=== PATIENT | female | born 1950 | race Two or more races ===

== ENCOUNTER 2020-02-02 06:22 | Observation (INO) | payer MEDICARE, SELFPAY ==
[2020-02-02] VITALS (10 sets, daily range): BP systolic 128–168; BP diastolic 56–77; PULSE 70–92; RESP 14–20; TEMP 36.2–37.7; O2SAT 98–100; BMI 27.3
--- NOTE | ~2020-02-02 | US_ITS ---
EXAMINATION: US carotid duplex BI DATE: 02/02/2020 14:17 INDICATION: Stroke with subjective visual disturbance. TECHNIQUE: Grayscale, color Doppler, and pulsed Doppler images of the cervical carotid arteries were obtained. The degree of vessel stenosis is placed in one of the following categories: normal, <50%, 5 0-69%, >=70% but less than near-occlusion, near-occlusion, or total occlusion. Note that percent sten osis relative to normal distal artery lumen diameter is indirectly measured from velocity measurement s as described by Christofer, et al. Radiology 2003; [id number]. COMPARISON: None. FINDINGS: RIGHT: The right common carotid artery (CCA) peak systolic velocity (PSV) is 94 cm/s. The right internal car otid artery (ICA) PSV is 100 cm/s. The right ICA end-diastolic velocity (EDV) is 27 cm/s. The right I CA/CCA PSV ratio is 1.1. Grayscale and color Doppler images yield an estimate of <50% diameter reduct ion from plaque in the ICA. The external carotid artery (ECA) PSV is 152 cm/s. There is antegrade benji w in the right vertebral artery. LEFT: The left CCA PSV is 118 cm/s. The left ICA PSV is 126 cm/s. The left ICA EDV is 27 cm/s. The left ICA /CCA PSV ratio is 1.1. Grayscale and color Doppler images using secondary Doppler criteria yield an e stimate of <50% diameter reduction from plaque in the ICA. The ECA PSV is 98 cm/s. There is antegrade flow in the left vertebral artery. IMPRESSION: 1. <50% stenosis in the right internal carotid artery. 2. <50% stenosis in the left internal carotid artery. Reviewed, dictated and finalized at location A.
--- NOTE | ~2020-02-02 | CT_ITS ---
EXAMINATION: CT brain wo con INDICATION: Right vision difficulty COMPARISON: None TECHNIQUE: Standard unenhanced head CT. The dose-length product (DLP) was 529.67 mGy-cm. The mA was a djusted according to patient size. Iterative reconstruction technique was employed. FINDINGS: There is hypoattenuation in the left frontoparietal region with loss of butts-white differen tiation. A smaller area of low attenuation is seen in the right frontoparietal region which also demo nstrates loss of butts-white differentiation. There is no acute intraparenchymal hemorrhage. No defini te evidence of mass lesion. There is mild periventricular and subcortical hypodensity probably relate d to small vessel ischemic disease. There is mild prominence of the sulci and ventricles related to c erebral atrophy. Intracranial calcified cerebral atherosclerosis is noted. There are no extra-axial c ollections. There is no mass effect or midline shift. Changes in the globes are likely from ocular le ns surgery. There is mild mucosal thickening of the paranasal sinuses. IMPRESSION: 1. Hypoattenuation in the bilateral frontoparietal regions which has the appearance of subacute to ea rly chronic infarct. 2. Age related findings. Reviewed, dictated and finalized at location A. IMPRESSION: 1. Hypoattenuation in the bilateral frontoparietal regions which has the appear ance of subacute to early chronic infarct. 2. Age related findings.
--- NOTE | ~2020-02-02 | XR_ITS ---
EXAMINATION: XR chest 1V INDICATION: Headache, CVA TECHNIQUE: AP view of the chest is obtained. COMPARISON: 07/05/2015 FINDINGS: The lungs are free of acute opacities. There is no pleural effusion or pneumothorax. The ca rdiomediastinal silhouette is normal. IMPRESSION: 1. No acute cardiopulmonary abnormality. Reviewed, dictated and finalized at location A.
--- NOTE | ~2020-02-02 | MR_ITS ---
EXAMINATION: MR brain/brain stem wo/w con DATE: 02/02/2020 13:24 INDICATION: Left-sided headache. Blurred vision. TECHNIQUE: Magnetic resonance imaging (MRI) of the brain and brainstem was performed without and with 14 mL Multihance intravenous contrast. Sequences included sagittal and axial T1-weighted SE, axial d iffusion-weighted FS SE, axial T2*-weighted GRE, axial T2-weighted FLAIR, and axial T2-weighted FSE. Postcontrast axial, sagittal and coronal T1-weighted SE was obtained. Apparent diffusion coefficient (ADC) maps were created. COMPARISON: CT dated 02/02/2020 FINDINGS: There is increased T2 signal at the margins of 2 regions of infarct with linear T1 hyperintense nile ar necrosis centered at the left parieto-occipital and right frontal parietal regions. There appears to be some encephalomalacia with cortical thinning at the right-sided infarcts suggesting this is chr onic. This is not seen at the left-sided infarct suggesting a more recent subacute to early chronic i nfarct. There are a few small old lacunar infarcts in the bilateral cerebellar hemispheres. There are no areas of restricted diffusion to suggest acute infarction. No intracranial hemorrhage or abnormal intracranial mass lesion. There are scattered areas of nonspecific increased T2-weighted signal inte nsity in the cerebral white matter, predominantly involving the deep and periventricular white matter . The ventricles are symmetric and normal in size. There are no abnormal extra-axial fluid collection s. Flow voids are seen in the cerebral arteries on the T2-weighted sequences consistent with their ex pected patency. Small right and trace left mastoid effusions. Mild mucosal thickening in the bilatera l maxillary sinuses. Changes of bilateral intraocular lens replacement. Visualized orbits and soft t issues are otherwise unremarkable. There are no areas of abnormal enhancement on the post contrast im ages. IMPRESSION: 1. No acute intracranial process. 2. Chronic infarct in the left parieto-occipital region and subacute to chronic infarct in the right frontal parietal [place]. 3. Several small old lacunar infarcts in the bilateral cerebellar hemispheres. Reviewed, dictated and finalized at location A.
--- NOTE | 2020-02-02 07:10 | PC.NURSE ---
pt states that headache and vision issue on left side NOT right
--- NOTE | 2020-02-02 07:24 | ECG_ITS ---
Measurements Intervals [place] Rate: 76 P: 42 OK: 155 QRS: 31 QRSD: 70 T: 35 QT: 360 QTc: 405 Interpretive Statements SINUS RHYTHM LOW QRS VOLTAGE IN PRECORDIAL LEADS BASELINE ARTIFACT- I, II, III, AVR, AVL BORDERLINE ECG Electronically Signed On 02-02-2020 8:06:17 CDT by Rigoberto Vera D.O.
--- NOTE | 2020-02-02 07:42 | ED.HA ---
HPI - Headache General Chief Complaint: Headache Stated Complaint: Headache Time Seen by Provider: 02/02/20 07:03 Source: patient and family Mode of arrival: ambulatory Limitations: no limitations History of Present Illness HPI Narrative: This patient is a 69 year old female with history of CVA, PA who presents for evaluation of left side headache. Patient reports intermittent left side headache for 2 days. Her pain resolves for a few hours after taking aspirin. She states 4 years ago she had the same headache and she was diagnosed with a stroke and a heart attack. At that time, she reported left side weakness, and she states she still has some residual weakness. Today she denies worsening weakness, numbness, or tingling. She also reports see spots in vision in both eyes for 2 days. She denies nausea, vomiting, URI symptoms, neck pain or fever. MD elicited complaint: headache Onset (ago): day(s) (2) Related Data Home Medications Medication Instructions Recorded Confirmed albuterol sulfate [ProAir HFA] 2 puff INHALATION QID PRN 02/02/20 02/02/20 aspirin [Aspirin Low Dose] 81 mg DAILY 02/02/20 02/02/20 clopidogrel 75 mg DAILY 02/02/20 02/02/20 ergocalciferol (vitamin D2) 50,000 unit WEEKLY 02/02/20 02/02/20 gabapentin 800 mg QID 02/02/20 02/02/20 glipizide 2.5 mg PO DAILY 02/02/20 02/02/20 lisinopril 2.5 mg DAILY 02/02/20 02/02/20 Allergies Allergy/AdvReac Type Severity Reaction Status Date / Time Penicillins Allergy Severe Anaphylaxis Verified 02/02/20 07:21 iodine Allergy Rash Verified 02/02/20 07:22 Sulfa (Sulfonamide Allergy Rash Verified 02/02/20 07:21 Antibiotics) Review of Systems Review of Systems: All systems reviewed & are unremarkable except as noted in HPI and below Constitutional: Constitutional: Denies chills and Denies fever(s) Eyes: Eyes: Reports spots in vision ENT: Denies dizziness and Denies nasal congestion Cardiovascular: Cardiovascular: Denies chest pain Respiratory: Respiratory: Denies cough and Denies dyspnea Gastrointestinal: Gastrointestinal: Denies abdominal pain, Denies nausea and Denies vomiting Neurologic: Denies vertigo, Reports headache(s) and Reports weakness PMFSH Past Medical History Medical History (Updated 02/02/20 @ 18:31 by Lizette Garcia MD) CVA (cerebral vascular accident) Diabetes mellitus Headache Hypertension Myocardial infarction Surgical History Surgical History H/O heart artery stent History of hysterectomy Family History Family History (Updated 02/02/20 @ 15:02 by Jessy Stafford, RN) Mother Cerebrovascular accident Father Unknown family medical history Social History Social History Smoking status: Never smoker Alcohol intake: never Substance use type: does not use Spiritual care concerns: No Exam Narrative: Exam Narrative: GENERAL: Well-appearing, well-nourished, and in no acute distress. HEAD: Normocephalic, atraumatic EYES: PERRLA and EOMI, conjunctiva clear without discharge EARS: TM's clear bilaterally without erythema or dullness THROAT:Mucous membranes moist, Oropharynx normal without erythema, exudate, peritonsillar swelling or fluctuance NECK: Supple, without lymphadenopathy or mass RESPIRATORY: No respiratory distress, Airway patent, Respirations non-labored, Clear to auscultation without rales, rhonchi or wheeze HEART: Regular rate and rhythm. No murmur heard. Normal peripheral pulses. ABDOMEN: Soft, nontender, nondistended, normal active bowel sounds. No masses. No rebound or guarding, No organomegaly. EXTREMITIES: No edema, SKIN: Warm, dry, normal color without rash NEURO: Alert and oriented x3. CN 2-12 grossly intact. PSYCH: Normal mood and affect. Course Consultations Consultation #1: I spoke with Dr. Garcia who accepts patient to service with neurology consult, MRI brain and c
[2020-02-02 07:57] LABS: Basophils Absolute Auto 0.1 K/mm3 (0.0-0.1); Basophils Percent Auto 0.9 % (0.2-1.2); Eosinophils Absolute Auto 0.3 K/mm3 (0-0.3); Eosinophils Percent Auto 4.2 % (0-4.4); Hematocrit 35.5 % (37.0-47.0); Hemoglobin 11.4 g/dL (12.0-15.0); Immature Granulocyte Absolute 0.02 K/mm3 (0.00-0.031); Immature Granulocyte Percent A 0.3 % (0-0.5); Lymphocytes Absolute Auto 2.66 K/mm3 (0.9-3.2); Lymphocytes Percent Auto 34.9 % (18.3-44.2); Mean Corpuscular HGB Conc 32.1 g/dl (32-36); Mean Corpuscular Hemoglobin 29.1 pg (26-34); Mean Corpuscular Volume 90.6 fl (80-100); Mean Platelet Volume 12.1 fl (7.4-10.4); Monocytes Absolute Auto 0.5 K/mm3 (0.1-0.6); Monocytes Percent Auto 6.8 % (2.6-8.5); Neutrophils Percent Auto 52.9 % (45.5-73.1); Platelet Count Result 210 k/mm3 (150-375); Red Blood Count 3.92 M/mm3 (4.2-5.4); Red Cell Distribution Width 13.6 % (11.5-14.5); White Blood Count 7.6 K/mm3 (4.5-10.0)
[2020-02-02 07:58] LABS: Glucose Point of Care 89 (65-105)
[2020-02-02 08:07] LABS: INR 0.9; Prothrombin Time 11.6 Seconds (11.1-14.7)
[2020-02-02 08:08] LABS: Anion Gap 14.4 mmol/L (7-16); Blood Urea Nitrogen 18 mg/dL (7-17); Calcium 9.3 mg/dL (8.4-10.2); Carbon Dioxide 25 mmol/L (22-30); Chloride 102 mmol/L (98-107); Estimated CRCL calculation 35 ml/min; Estimated Glomerular Filt Rate 44; Glucose 101 mg/dL (65-105); Partial Thromboplastin Time 37.9 SECONDS (22.3-36.8); Potassium 4.4 mmol/L (3.4-5.0); Sodium 137 mmol/L (137-145)
[2020-02-02 08:20] LABS: Troponin I < 0.012 ng/mL (0.000-0.034)
[2020-02-02] MEDS: CLOPIDOGREL BISULFATE 75 MG TABLET PO (10:15)
[2020-02-02] MEDS: ASPIRIN 81 MG CHEWABLE TABLET 324 MG PO (10:15)
[2020-02-02 10:19] LABS: Add Urine Microscopic? NO; Appearance Urine Clear (Clear); Bilirubin Urine Negative (Negative); Blood Urine Negative (Negative); Color Urine Straw (Yellow); Glucose Urine UA Negative (Negative); Ketones Urine Negative (Negative); Leukocyte Esterase Ur Negative LEU/UL (Negative); Nitrate Urine Negative (Negative); Protein Urine Negative (Negative); Specific Grav Ur 1.011 (1.001-1.035); Urobilinogen Urine Negative mg/dL (<2.0)
--- NOTE | 2020-02-02 10:50 | PC.NURSE ---
This patient, Robi Henriquez, was admitted to Medical Room 342-. Patient/family oriented to hospital policies and general routines including ID bracelet, bed and alarms, visiting hours, pain management, procedures, bathroom and other care routines, personal items, smoking policy, room service/diet, and visiting hours. Valuables list has been completed. Information on how to activate the Rapid Response Team has been discussed. Patient/Family are encouraged to report perceived risks to care and to ask questions if they do not understand what they are told or what they should do.
[2020-02-02 11:52] LABS: Glucose Point of Care 80 (65-105)
--- NOTE | 2020-02-02 14:47 | WPDNEURCNPN ---
Assessment and Plan Assessment and plan (1) Hypertension: Code(s): I10 - Essential (primary) hypertension Status: Acute (2) TIA (transient ischemic attack): Code(s): G45.9 - Transient cerebral ischemic attack, unspecified Status: Acute (3) Headache: Code(s): R51 - Headache Status: Acute Additional Plan she already is on and dual anti-platelet therapy and being in October investigated we will review once the MRIs done and the echo is done and will decide according Consult date: 02/02/20 Time Seen: 14:00 HPI: Robi Henriquez is a 69 year old female who is from a file and was admitted because of the headache and the previous history of having a stroke results of multiple testing including the brain MRI are pending patient at the time of the dictation does not given history of headache and she is feeding herself with her right hand quite nicely and well she denies any fever chills sore throat and does not seem to be any distress Review of Systems Review of Systems: All systems reviewed & are unremarkable except as noted in HPI and below PMFSH Past Medical History Medical History CVA (cerebral vascular accident) Diabetes mellitus Hypertension Myocardial infarction Surgical History Surgical History H/O heart artery stent History of hysterectomy Social History Social History Smoking status: Never smoker Alcohol intake: never Substance use type: does not use Spiritual care concerns: No Meds Home Medications and Allergies Home Medications Medication Instructions Recorded Confirmed Type albuterol sulfate [ProAir HFA] 2 puff INHALATION QID PRN 02/02/20 02/02/20 History aspirin [Aspirin Low Dose] 81 mg DAILY 02/02/20 02/02/20 History clopidogrel 75 mg DAILY 02/02/20 02/02/20 History ergocalciferol (vitamin D2) 50,000 unit WEEKLY 02/02/20 02/02/20 History gabapentin 800 mg QID 02/02/20 02/02/20 History glipizide 2.5 mg PO DAILY 02/02/20 02/02/20 History lisinopril 2.5 mg DAILY 02/02/20 02/02/20 History Allergies Allergy/AdvReac Type Severity Reaction Status Date / Time Penicillins Allergy Severe Anaphylaxis Verified 02/02/20 07:21 iodine Allergy Rash Verified 02/02/20 07:22 Sulfa (Sulfonamide Allergy Rash Verified 02/02/20 07:21 Antibiotics) Vital Signs Vital Signs - 24 hr 02/02/20 06:25 02/02/20 07:18 02/02/20 07:43 Temperature 36.4 C Pulse Rate 85 84 92 Respiratory Rate 16 14 14 Blood Pressure 132/76 168/59 H 166/76 H Pulse Oximetry 100 100 99 02/02/20 09:02 02/02/20 10:35 02/02/20 11:16 Temperature 36.4 C Pulse Rate 70 72 70 Respiratory Rate 16 20 18 Blood Pressure 128/56 L 154/64 H 146/66 H Pulse Oximetry 100 100 100 02/02/20 14:13 Temperature Pulse Rate 70 Respiratory Rate 18 Blood Pressure Pulse Oximetry 100 Exam Const: General: comfortable and no acute distress HENMT: General nose exam: Normal nares present Mouth: Yes moist mucous membranes Eyes: General: appearance normal, both eyes and all related structures Neck: Neck: supple and no JVD Resp: Effort & Inspection: normal respiratory effort Auscultation: clear to auscultation bilaterally Cardio: Rate: regular rate Rhythm: regular rhythm GI: Auscultation: normal bowel sounds Skin: General skin exam: normal color and no rashes or lesions noted Neuro: Other: in spite of some language barrier she being from [facility] she is awake and alert well oriented does not seem to be any distress a subtle left-sided weakness is noted otherwise neurological examination is really decent and unremarkable except the residual weakness she may have had from the previous stroke as she claims Extrem: General: normal to inspection Psych: Mental Status: mental status grossly normal Results Labs CBC & Chem 7: 02/02/20 07:48
--- NOTE | 2020-02-02 15:29 | PM.IMHP ---
H&P: HPI History of Present Illness Date/Time: 02/02/20 15:29 Chief complaint: left headache,cva Narrative: Robi Henriquez is a 69 year old female from [facility] with past medical history of diabetes hypertension coronary artery disease status post CVA 5 years ago with left-sided weakness, patient states about a month now she has left orbital headache radiating to her jaw and occipital area with blurry vision and photophobia, patient did not want to come to the hospital because she was scared but her symptoms were getting worse she presented today to the emergency depart, patient is already on dual anti-platelet therapy with aspirin and Plavix, and had a CT scan of the head in the emergency depart which did not show any acute injury and similarly patient had MRI of the brain did not show any acute injury rather chronic cerebral lesions, to further evaluate patient had a carotid ultrasound which are essentially normal, I suspect patient may have migraine headache with left orbital pain radiating to the back, patient will be seen by neurologist and further recommendation to follow Review of Systems Review of Systems: All systems reviewed & are unremarkable except as noted in HPI and below PMFSH Past Medical History Medical History (Updated 02/02/20 @ 15:49 by Kolby Garcia MD) CVA (cerebral vascular accident) Diabetes mellitus Headache Hypertension Myocardial infarction Surgical History Surgical History H/O heart artery stent History of hysterectomy Family History Family History (Updated 02/02/20 @ 15:02 by Jessy Stafford RN) Mother Cerebrovascular accident Father Unknown family medical history Social History Social History Smoking status: Never smoker Alcohol intake: never Substance use type: does not use Spiritual care concerns: No Meds Home Medications and Allergies Home Medications Medication Instructions Recorded Confirmed Type albuterol sulfate [ProAir HFA] 2 puff INHALATION QID PRN 02/02/20 02/02/20 History aspirin [Aspirin Low Dose] 81 mg DAILY 02/02/20 02/02/20 History clopidogrel 75 mg DAILY 02/02/20 02/02/20 History ergocalciferol (vitamin D2) 50,000 unit WEEKLY 02/02/20 02/02/20 History gabapentin 800 mg QID 02/02/20 02/02/20 History glipizide 2.5 mg PO DAILY 02/02/20 02/02/20 History lisinopril 2.5 mg DAILY 02/02/20 02/02/20 History Allergies Allergy/AdvReac Type Severity Reaction Status Date / Time Penicillins Allergy Severe Anaphylaxis Verified 02/02/20 07:21 iodine Allergy Rash Verified 02/02/20 07:22 Sulfa (Sulfonamide Allergy Rash Verified 02/02/20 07:21 Antibiotics) Vital Signs Vital Signs - 24 hr 02/02/20 06:25 02/02/20 07:18 02/02/20 07:43 Temperature 97.6 F Pulse Rate 85 84 92 Respiratory Rate 16 14 14 Blood Pressure 132/76 168/59 H 166/76 H Pulse Oximetry 100 100 99 02/02/20 09:02 02/02/20 10:35 02/02/20 11:16 Temperature 97.6 F Pulse Rate 70 72 70 Respiratory Rate 16 20 18 Blood Pressure 128/56 L 154/64 H 146/66 H Pulse Oximetry 100 100 100 02/02/20 14:00 02/02/20 14:13 Temperature 97.2 F L Pulse Rate 78 70 Respiratory Rate 16 18 Blood Pressure 146/62 H Pulse Oximetry 100 100 Exam Const: General: no acute distress and uncomfortable HENMT: General nose exam: Normal nares present Mouth: Yes moist mucous membranes Eyes: Sclera: sclerae normal Other: patient is unable to follow eye movement due to pain and photophobia. Neck: Neck: supple Resp: Effort & Inspection: normal respiratory effort Auscultation: clear to auscultation bilaterally Cardio: Rate: regular rate Rhythm: regular rhythm GI: GI Palp: Yes Soft to palpation Auscultation: normal bowel sounds Skin: General skin exam: normal color Neuro: Speech: normal speech Other: left upper and lower extremity weaker than the right Extrem: General:
[2020-02-02 16:39] LABS: Glucose Point of Care 96 (65-105)
[2020-02-02 20:55] LABS: Glucose Point of Care 87 (65-105)
[2020-02-03] VITALS: PULSE 70
[2020-02-03 04:00] VITALS: PULSE 61
[2020-02-03 06:10] VITALS: BP 123/55; PULSE 76; RESP 14; TEMP 36.5; O2SAT 98
[2020-02-03 08:00] VITALS: PULSE 87
[2020-02-03 08:06] LABS: Glucose Point of Care 126 (65-105)
[2020-02-03 11:52] LABS: Glucose Point of Care 104 (65-105)
[2020-02-03 12:00] VITALS: PULSE 88
--- NOTE | 2020-02-03 13:14 | PCOTNOTE ---
Attempted to see patient twice this date. First attempt, patient was eating lunch. Pt stated she was hoping for discharge today. Attempted this pm, however patient stated she wanted to hold off to see if she was discharging. Daughter in law at bedside reported She got the green light from Dr. Garcia, we just have to wait for the neurologist to say she can go.
[2020-02-03 14:00] VITALS: BP 139/63; PULSE 85; RESP 18; TEMP 36.6; O2SAT 100
--- NOTE | 2020-02-03 15:13 | PM.DS ---
DS: Admitting Diagnosis Admitting Diagnosis Admitting Diagnosis: Essential (primary) hypertension DS: Discharge Diagnosis Discharge Diagnosis (1) Headache: Code(s): R51 - Headache Status: Acute Assessment and Plan: Robi Henriquez is a 69 year old female from [facility] with past medical history of diabetes hypertension coronary artery disease status post CVA 5 years ago with left-sided weakness, patient states about a month now she has left orbital headache radiating to her jaw and occipital area with blurry vision and photophobia, patient did not want to come to the hospital because she was scared but her symptoms were getting worse she presented today to the emergency depart, patient is already on dual anti-platelet therapy with aspirin and Plavix, and had a CT scan of the head in the emergency depart which did not show any acute injury and similarly patient had MRI of the brain did not show any acute injury rather chronic cerebral lesions, to further evaluate patient had a carotid ultrasound which are essentially normal, I suspect patient may have migraine headache with left orbital pain radiating to the back, patient will be seen by neurologist and further recommendation to follow (2) TIA (transient ischemic attack): Code(s): G45.9 - Transient cerebral ischemic attack, unspecified Status: Acute Assessment and Plan: patient symptoms have improved CT scan and MRI of the brain sign negative most likely patient has migraine headache (3) Hypertension: Code(s): I10 - Essential (primary) hypertension Status: Acute Assessment and Plan: will continue home regimen and monitor permissively trend her blood pressure (4) Diabetes mellitus: Code(s): E11.9 - Type 2 diabetes mellitus without complications Status: Acute Assessment and Plan: will continue home regimen and monitor DS: Summary Hospital Course Reason for hospitalization: Chief complaint: left headache,cva Narrative: Robi Henriquez is a 69 year old female from [facility] with past medical history of diabetes hypertension coronary artery disease status post CVA 5 years ago with left-sided weakness, patient states about a month now she has left orbital headache radiating to her jaw and occipital area with blurry vision and photophobia, patient did not want to come to the hospital because she was scared but her symptoms were getting worse she presented today to the emergency depart, patient is already on dual anti-platelet therapy with aspirin and Plavix, and had a CT scan of the head in the emergency depart which did not show any acute injury and similarly patient had MRI of the brain did not show any acute injury rather chronic cerebral lesions, to further evaluate patient had a carotid ultrasound which are essentially normal, I suspect patient may have migraine headache with left orbital pain radiating to the back, patient will be seen by neurologist and further recommendation to follow Hospital Course: Robi Henriquez is a 69 year old female from [facility] with past medical history of diabetes hypertension coronary artery disease status post CVA 5 years ago with left-sided weakness, patient states about a month now she has left orbital headache radiating to her jaw and occipital area with blurry vision and photophobia, patient did not want to come to the hospital because she was scared but her symptoms were getting worse she presented today to the emergency depart, patient is already on dual anti-platelet therapy with aspirin and Plavix, and had a CT scan of the head in the emergency depart which did not show any acute injury and similarly patient had MRI of the brain did not show any acute injury rather chronic cerebral lesions, to further evaluate patient had a carotid ultrasound which are essentially normal, I suspect patient may have migraine headache with left orbital pain radiating to the back, patient will be seen by neurol
[2020-02-03] MEDS: ASPIRIN 81 MG CHEWABLE TABLET PO (15:45)
[2020-02-03] MEDS: CLOPIDOGREL BISULFATE 75 MG TABLET PO (15:45)
--- NOTE | 2020-02-03 16:12 | WPDNEUROPN ---
Progress Note: A&P Assessment and Plan (1) CVA (cerebral vascular accident): Code(s): I63.9 - Cerebral infarction, unspecified Status: Acute (2) Diabetes mellitus: Code(s): E11.9 - Type 2 diabetes mellitus without complications Status: Acute (3) Headache: Code(s): R51 - Headache Status: Acute (4) TIA (transient ischemic attack): Code(s): G45.9 - Transient cerebral ischemic attack, unspecified Status: Acute (5) Hypertension: Code(s): I10 - Essential (primary) hypertension Status: Acute Additional Plan discussed with the daughter and the patient she can be safely discharged and continue aspirin and Plavix with all the other medications as she has been receiving Review of Systems Review of Systems: All systems reviewed & are unremarkable except as noted in HPI and below Exam Const: General: comfortable and no acute distress HENMT: General nose exam: Normal nares present Mouth: Yes moist mucous membranes Eyes: General: appearance normal, both eyes and all related structures Neck: Neck: supple and no JVD Resp: Effort & Inspection: normal respiratory effort Auscultation: clear to auscultation bilaterally Cardio: Rate: regular rate Rhythm: regular rhythm GI: Auscultation: normal bowel sounds Skin: General skin exam: normal color and no rashes or lesions noted Neuro: Speech: normal speech Other: back to her baseline Extrem: General: normal to inspection Psych: Mental Status: mental status grossly normal Objective Data Vital Signs Vital Signs: Vital Signs - 24 hr 02/02/20 17:17 02/02/20 20:10 02/03/20 00:00 Temperature 37.7 C H 36.5 C Pulse Rate 89 73 70 Respiratory Rate 20 16 Blood Pressure 150/77 H 148/68 H Pulse Oximetry 98 99 02/03/20 04:00 02/03/20 06:10 02/03/20 08:00 Temperature 36.5 C Pulse Rate 61 76 87 Respiratory Rate 14 Blood Pressure 123/55 L Pulse Oximetry 98 02/03/20 12:00 02/03/20 14:00 Temperature 36.6 C Pulse Rate 88 85 Respiratory Rate 18 Blood Pressure 139/63 Pulse Oximetry 100 Intake/Output Intake/Output: Intake & Output 01/31/20 02/01/20 02/02/20 02/03/20 23:59 23:59 23:59 23:59 Intake Total 580 1570 Output Total 600 Balance 580 970 Meds/Results Radiology Results: ITS Impressions Head CT 02/02/20 08:18 IMPRESSION: 1. Hypoattenuation in the bilateral frontoparietal regions which has the appearance of subacute to early chronic infarct. 2. Age related findings. Chest X-Ray 02/02/20 08:31 IMPRESSION: 1. No acute cardiopulmonary abnormality. Brain MRI 02/02/20 13:29 IMPRESSION: 1. No acute intracranial process. 2. Chronic infarct in the left parieto-occipital region and subacute to chronic infarct in the right frontal parietal [place]. 3. Several small old lacunar infarcts in the bilateral cerebellar hemispheres. Carotid Doppler Study 02/02/20 14:54 IMPRESSION: 1. <50% stenosis in the right internal carotid artery. 2. <50% stenosis in the left internal carotid artery. Labs Labs: Laboratory Results - last 24 hr 02/02/20 02/02/20 02/03/20 16:36 20:49 08:01 POC Capillary Glucose 96 87 126 H 02/03/20 11:33 POC Capillary Glucose 104 Quality VTE Prophylaxis VTE prophylaxis: mechanical ordered
== END 2020-02-03 15:51 | disposition home or self-care (01) ==
LOC: ANHED 09:27 → ANH3MED 09:49
PROVIDERS: Admitting Provider Family Medicine; Emergency Provider General Practice; PCP Family Medicine; Visit Provider Family Medicine
DX: R51 Headache (principal); G45.9 Transient cerebral ischemic attack, unspecified; I10 Essential (primary) hypertension; E11.9 Type 2 diabetes mellitus without complications; I25.10 Atherosclerotic heart disease of native coronary artery without angina pectoris; I25.2 Old myocardial infarction; Z79.82 Long term (current) use of aspirin; Z79.899 Other long term (current) drug therapy; Z86.73 Personal history of transient ischemic attack (TIA), and cerebral infarction without residual deficits
CPT/HCPCS: 36415; 70450; 70553; 71045; 80048; 81003; 82948; 84484; 85025; 85610; 85730; 93005; 93880; 96365; 97161; 97165; 99285; A9270; A9577; G0378; J0131

== ENCOUNTER 2021-01-19 08:20 | Inpatient (IN) | payer MEDICARE, SELFPAY ==
[2021-01-19] VITALS (10 sets, daily range): BP systolic 144–180; BP diastolic 58–69; PULSE 72–99; RESP 12–18; TEMP 36.4; O2SAT 95–100
--- NOTE | ~2021-01-19 | XR_ITS ---
EXAMINATION: XR chest 1V portable DATE: 01/19/2021 09:16 INDICATION: Weakness TECHNIQUE: frontal view of the chest was obtained. COMPARISON: Chest radiograph dated 02/02/2020 FINDINGS: Mild lingular atelectasis along side a small left paracardial fat pad. Calcified nodule at the medial left lung base consistent with old granulomatous disease. Relatively dense reticular pattern at the bilateral lung bases most consistent with aspirated barium. No new airspace opacities, pulmonary zachary a, pleural effusion or pneumothorax. The cardiomediastinal silhouette is normal. Coronary artery sten ting. Mild thoracic dextrocurvature accentuated by some leftward rotation of the patient. IMPRESSION: 1. No acute cardiopulmonary disease. Reviewed, dictated and finalized at location A.
--- NOTE | ~2021-01-19 | MR_ITS ---
EXAMINATION: MRA brain wo con EXAM DATE: 01/20/2021 11:38 INDICATION: Stroke. TECHNIQUE: 3-D [id number] MRA of the intracranial arteries was performed without contrast. Correl ation is made to head CT from 01/19/2021. FINDINGS: Study is limited due to patient motion. There is normal flow related signal seen within the vertebr al, basilar and internal carotid arteries. There is no proximal stenosis. There are no aneurysms id entified. Both A1 and P1 segments are patent. Flow in the cerebral arteries is symmetric. Old front oparietal lobe infarctions. IMPRESSION: Unremarkable cerebral arteries. Reviewed, dictated and finalized at location A.
--- NOTE | ~2021-01-19 | XR_ITS ---
EXAMINATION: XR chest 1V portable INDICATION: Shortness of breath TECHNIQUE: Portable AP chest at 1139 hours COMPARISON: 01/19/2021 FINDINGS: The lungs are free of acute opacities. There is no pleural effusion or pneumothorax. The ca rdiomediastinal silhouette is normal. There is S-shaped curvature of the spine. IMPRESSION: 1. No acute cardiopulmonary abnormality. Reviewed, dictated and finalized at location B.
--- NOTE | ~2021-01-19 | US_ITS ---
EXAMINATION: US carotid duplex BI DATE: 01/19/2021 13:15 INDICATION: Transient ischemic episode with encephalopathy. Cerebral atherosclerosis. TECHNIQUE: Grayscale, color Doppler, and pulsed Doppler images of the cervical carotid arteries were obtained. The degree of vessel stenosis is placed in one of the following categories: normal, <50%, 5 0-69%, >=70% but less than near-occlusion, near-occlusion, or total occlusion. Note that percent sten osis relative to normal distal artery lumen diameter is indirectly measured from velocity measurement s as described by Christofer, et al. Radiology 2003; 229:340-346. COMPARISON: 02/02/2020 FINDINGS: RIGHT: The right common carotid artery (CCA) peak systolic velocity (PSV) is 63 cm/s. The right internal car otid artery (ICA) PSV is 91 cm/s. The right ICA end-diastolic velocity (EDV) is 24 cm/s. The right IC A/CCA PSV ratio is 1.5. Grayscale and color Doppler images yield an estimate of <50% diameter reducti on from plaque in the ICA. The external carotid artery (ECA) PSV is 96 cm/s. The right vertebral cornelius ry is not visualized. LEFT: The left CCA PSV is 82 cm/s. The left ICA PSV is 116 cm/s. The left ICA EDV is 27 cm/s. The left ICA/ CCA PSV ratio is 1.4. Grayscale and color Doppler images yield an estimate of <50% diameter reduction from plaque in the ICA. The ECA PSV is 82 cm/s. There is antegrade flow in the left vertebral artery . IMPRESSION: 1. <50% stenosis in the right internal carotid artery. 2. <50% stenosis in the left internal carotid artery. 3. Nonvisualized right vertebral artery. On review of brain MR dated 02/02/2020, the left vertebral art ranjith is dominant and is unclear whether the right vertebral artery is absent or diminutive. Reviewed, dictated and finalized at location A. IMPRESSION: 1. <50% stenosis in the right internal carotid artery. 2. <50% stenosis in the left internal carotid artery. 3. Nonvisualized right vertebral artery. On review of brain MR dated 02/02/2020, the left vertebral artery is dominant and is unclear whether the right vertebra l artery is absent or diminutive.
--- NOTE | ~2021-01-19 | CT_ITS ---
EXAMINATION: CT brain wo con INDICATION: Headache COMPARISON: 02/02/2020 TECHNIQUE: Standard unenhanced head CT. The dose-length product (DLP) was 605.33 mGy-cm. The mA was a djusted according to patient size. Iterative reconstruction technique was employed. FINDINGS: There is no acute intraparenchymal hemorrhage. No evidence of mass lesion. No evidence of a cute infarction. There are chronic infarcts in the bilateral frontoparietal regions and in the bilate ral cerebral hemispheres. There is mild periventricular and subcortical hypodensity probably related to small vessel ischemic disease. There is mild prominence of the sulci and ventricles related to cer ebral atrophy. Intracranial calcified cerebral atherosclerosis is noted. There are no extra-axial col lections. There is no mass effect or midline shift. Changes in the globes are likely from ocular lens surgery. The visualized sinuses and mastoid air cells are well aerated. IMPRESSION: 1. Areas of prior infarction without acute intracranial abnormality. 2. Age related findings. Reviewed, dictated and finalized at location B.
--- NOTE | 2021-01-19 08:47 | ECG_ITS ---
Measurements Intervals [place] Rate: 73 P: 58 ID: [id number] QRS: 42 QRSD: 77 T: 38 QT: 383 QTc: 424 Interpretive Statements SINUS RHYTHM EARLY PRECORDIAL R/S TRANSITION LOW QRS VOLTAGE IN PRECORDIAL LEADS BORDERLINE ECG Electronically Signed On 01-19-2021 9:08:02 CDT by Rigoberto Vera D.O.
[2021-01-19 09:17] LABS: Basophils Absolute Auto 0.1 K/mm3 (0.0-0.1); Eosinophils Absolute Auto 0.5 K/mm3 (0-0.3); Eosinophils Percent Auto 6.6 % (0-4.4); Hematocrit 35.7 % (37.0-47.0); Hemoglobin 10.9 g/dL (12.0-15.0); Immature Granulocyte Absolute 0.01 K/mm3 (0.00-0.031); Immature Granulocyte Percent A 0.1 % (0-0.5); Lymphocytes Absolute Auto 2.68 K/mm3 (0.9-3.2); Lymphocytes Percent Auto 36.9 % (18.3-44.2); Mean Corpuscular HGB Conc 30.5 g/dl (32-36); Mean Corpuscular Hemoglobin 28.1 pg (26-34); Mean Platelet Volume 12.4 fl (7.4-10.4); Monocytes Absolute Auto 0.4 K/mm3 (0.1-0.6); Monocytes Percent Auto 6.1 % (2.6-8.5); Neutrophils Absolute Auto 3.6 K/mm3 (1.3-6.7); Neutrophils Percent Auto 49.3 % (45.5-73.1); Platelet Count Result 195 k/mm3 (150-375); Red Blood Count 3.88 M/mm3 (4.2-5.4); Red Cell Distribution Width 13.8 % (11.5-14.5); White Blood Count 7.3 K/mm3 (4.5-10.0)
[2021-01-19 09:22] LABS: INR 0.8; Prothrombin Time 11.4 Seconds (11.1-14.7)
[2021-01-19 09:23] LABS: Anion Gap 8 mmol/L (8-16); Blood Urea Nitrogen 18 mg/dL (7-17); Calcium 9.2 mg/dL (8.4-10.2); Carbon Dioxide 26 mmol/L (22-30); Chloride 108 mmol/L (98-107); Estimated CRCL calculation 36 ml/min; Estimated Glomerular Filt Rate 40; Glucose 98 mg/dL (65-110); Partial Thromboplastin Time 36.3 SECONDS (22.3-36.8); Potassium 4.4 mmol/L (3.4-5.0); Sodium 142 mmol/L (137-145)
[2021-01-19 09:26] LABS: Glucose Point of Care 96 mg/dl (65-105)
[2021-01-19 09:33] LABS: Troponin I < 0.012 ng/mL (0.000-0.034)
--- NOTE | 2021-01-19 11:46 | ED.GENADULT ---
HPI - General Adult General Chief complaint: Suspected CVA Stated complaint: headache, weakness Time Seen by Provider: 01/19/21 10:30 Source: patient, RN notes reviewed and old records reviewed Mode of arrival: ambulatory Limitations: no limitations History of Present Illness HPI narrative: Patient is 70-year-old female who presents to emergency department for evaluation of weakness on the left side with headache that began yesterday notes she has history of CVA symptoms began yesterday and was having difficulty ambulating and getting around and became progressively more weak. Patient notes she has been compliant with her aspirin and Plavix. Patient has multiple comorbidities lives at home with family denies injury or trauma or recent illness Related Data Home Medications Medication Instructions Recorded Confirmed albuterol sulfate [ProAir HFA] 2 puff INHALATION QID PRN 02/02/20 02/02/20 aspirin [Aspirin Low Dose] 81 mg DAILY 02/02/20 02/02/20 clopidogrel 75 mg DAILY 02/02/20 02/02/20 ergocalciferol (vitamin D2) 50,000 unit WEEKLY 02/02/20 02/02/20 gabapentin 800 mg QID 02/02/20 02/02/20 glipizide 2.5 mg PO DAILY 02/02/20 02/02/20 lisinopril 2.5 mg DAILY 02/02/20 02/02/20 Allergies Allergy/AdvReac Type Severity Reaction Status Date / Time Penicillins Allergy Severe Anaphylaxis Verified 02/02/20 07:21 iodine Allergy Rash Verified 02/02/20 07:22 Sulfa (Sulfonamide Allergy Rash Verified 02/02/20 07:21 Antibiotics) Review of Systems Review of Systems: All systems reviewed & are unremarkable except as noted in HPI and below PMFSH Past Medical History Medical History CVA (cerebral vascular accident) Diabetes mellitus Headache Hypertension Myocardial infarction Surgical History Surgical History H/O heart artery stent History of hysterectomy Family History Family History (Updated 02/02/20 @ 15:02 by Jessy Stafford RN) Mother Cerebrovascular accident Father Unknown family medical history Social History Social History Smoking status: Never smoker Alcohol intake: never Substance use type: does not use Spiritual care concerns: No Exam Narrative: Exam Narrative: GENERAL: Chronically ill-appearing, obese d, and in no acute distress. HEAD: Normocephalic, atraumatic. EYES: PERRLA and EOMI. ENT: Nares clear, no rhinorrhea or epistaxis. Mucous membranes moist. NECK: Supple. No adenopathy or masses. No carotid bruits or JVD CHEST: Clear to auscultation. No respiratory distress. No wheezes rales or rhonchi HEART: Regular rate and rhythm. No murmur heard. Normal peripheral pulses. ABDOMEN: Soft, mild discomfort on palpation, nondistended EXTREMITIES: Normal range of motion. No edema. SKIN: Warm, dry, no rash. NEURO: Alert and oriented x3. Cranial nerves II through XII grossly intact. Patient with left-sided weakness upper and lower extremity has difficulty performing range of motion and activity and has difficulty with lifting left lower extremity against gravity. 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 PSYCH: Normal mood and affect. Course Consultations Consultation #1: Discussed case with the hospitalist Dr. Slater who has accepted the patient Date: 01/19/21 Vital Signs Vital signs: Vital Signs Pulse Rate 78 01/19/21 08:39 Respiratory Rate 15 01/19/21 08:39 Blood Pressure 175/66 H 01/19/21 08:39 Pulse Oximetry 95 01/19/21 08:39 Pulse Rate 78 01/19/21 08:39 Respiratory Rate 15 01/19/21 08:39 Blood Pressure 175/66 H 01/19/21 08:39 Pulse Oximetry 95 01/19/21 08:39 Medical Decision Making [facility] Narrative Medical decision making narrative: Patient will be placed in hospital for further evaluation of her stroke she has history of stroke and heart attack is currently on
[2021-01-19 12:17] LABS: Add Urine Microscopic? YES; Appearance Urine Clear (Clear); Bilirubin Urine Negative (Negative); Blood Urine Negative (Negative); Color Urine Straw (Yellow); Glucose Urine UA Negative (Negative); Ketones Urine Negative (Negative); Leukocyte Esterase Ur 2+ LEU/UL (Negative); Mucus Urine Rare /lpf; Nitrate Urine Negative (Negative); Protein Urine Negative (Negative); RBC Urine 0-2 /hpf (0-2); Specific Grav Ur 1.011 (1.001-1.035); Urobilinogen Urine Negative mg/dL (<2.0); WBC Urine 16-20 /hpf
--- NOTE | 2021-01-19 15:14 | PM.IMHP ---
H&P: HPI History of Present Illness Date/Time: 01/19/21 15:00 Chief Complaint: left-sided weakness Narrative: patient is a 70-year-old female with a past medical history of [place], CVA, hypertension who presented to the ED with left-sided weakness. Patient stated that she was at home severe for including the house when she had collapsed. Her son was there picture before and she took a baby aspirin which she said did help. She said she probably should if he min yesterday because she also got a headache which happened her the last time she had a stroke. However this time she could not walk and she was really weak on the left side. patient has a headache which she claims to be a 10/10 that she is contributing to not eating today. Patient denies chest pain, shortness of breath she also denies nausea, vomiting, abdominal pain, numbness and tingling, lightheadedness, neck pain or fatigue. patient does say that she has been on her aspirin and Plavix which she has been compliant with and does not skip any doses. It was noted upon exam the patient does have a high blood pressure. The current blood pressure was 180/90. Review of Systems Review of Systems: All systems reviewed & are unremarkable except as noted in HPI and below PMFSH Past Medical History Medical History CVA (cerebral vascular accident) Diabetes mellitus Headache Hypertension Myocardial infarction Surgical History Surgical History H/O heart artery stent History of hysterectomy Family History Family History Mother Cerebrovascular accident Father Unknown family medical history Social History Social History Smoking status: Never smoker Alcohol intake: never Substance use: never Substance use type: does not use Gender identity (if verbalized by the patient): Female Spiritual care concerns: No Meds Home Medications and Allergies Home Medications Medication Instructions Recorded Confirmed Type albuterol sulfate [ProAir HFA] 2 puff INHALATION QID PRN 02/02/20 01/19/21 History aspirin [Aspirin Low Dose] 81 mg DAILY 02/02/20 01/20/21 History clopidogrel 75 mg DAILY 02/02/20 01/20/21 History ergocalciferol (vitamin D2) 50,000 unit PO WEEKLY 02/02/20 01/19/21 History gabapentin 800 mg QID 02/02/20 01/19/21 History glipizide 2.5 mg PO DAILY 02/02/20 01/19/21 History lisinopril 2.5 mg PO DAILY 02/02/20 01/19/21 History metformin 1,000 mg PO BID 01/20/21 01/20/21 History Allergies Allergy/AdvReac Type Severity Reaction Status Date / Time Penicillins Allergy Severe Anaphylaxis Verified 02/02/20 07:21 acetaminophen [From Tylenol] Allergy Swelling Verified 01/19/21 17:47 of Lip/Tongue/Throat iodine Allergy Rash Verified 02/02/20 07:22 Sulfa (Sulfonamide Allergy Rash Verified 02/02/20 07:21 Antibiotics) Vital Signs Vital Signs - 24 hr 01/19/21 08:39 01/19/21 09:04 01/19/21 10:15 Pulse Rate 78 99 72 Respiratory Rate 15 13 Blood Pressure 175/66 H 152/60 H Pulse Oximetry 95 100 01/19/21 11:15 01/19/21 12:30 01/19/21 14:15 Pulse Rate 73 72 76 Respiratory Rate 12 12 13 Blood Pressure 166/58 H 144/60 H 160/69 H Pulse Oximetry 99 99 99 Exam Const: General: cooperative, healthy appearing, comfortable, no acute distress, well developed, alert, awake, Physically active, anxious and tired appearing Nutritional Appearance: well nourished Orientation/consciousness: oriented to person, oriented to place, oriented to time and patient oriented x3 Limitations: no limitations HENMT: Head: normal to inspection Ears: hearing grossly normal bilaterally and external ears normal General nose exam: Normal external nose present and Normal nares present Mouth: Yes Normal oral and palatal mucosa present, Yes lip n
--- NOTE | 2021-01-19 16:10 | ADMGEN ---
This patient, Robi Henriquez, was admitted to [address] [place] [address] Room 304-01. Patient/family oriented to hospital policies and general routines including ID bracelet, bed and alarms, visiting hours, pain management, procedures, bathroom and other care routines, personal items, smoking policy, room service/diet, and visiting hours. Information on how to activate the Rapid Response Team has been discussed. Patient/Family are encouraged to report perceived risks to care and to ask questions if they do not understand what they are told or what they should do.
[2021-01-19] MEDS: FAMOTIDINE 20 MG/2 ML VIAL IV PUSH (21:37)
[2021-01-19 21:55] LABS: Glucose Point of Care 109 mg/dl (65-105)
[2021-01-19 21:55] LABS: Glucose Point of Care 112 mg/dl (65-105)
[2021-01-20] VITALS: PULSE 72
--- NOTE | 2021-01-20 | ECHO_ITS ---
Patient Info Name: Robi Henriquez Age: 70 years : 1950 Gender: Female Ht: 65 in Wt: 168 lbs BSA: 1.89 m2 HR: 84 bpm BP: 132 / 51 mmHg Exam Date: 01/20/2021 9:32 AM Exam Location: [facility] Patient Status: Inpatient Admit Date: 01/19/2021 Staff Ordering Physician: Juan Urban Photographs Curator: Marshall Olivo RDCS, RT Attending Provider: Goran Hernández MD Referring Physician: Wilmar PINEDA; Exam Type: CA echo doppler color flow Study Info Indications I63.239 - Cerebral infarction due to unspecified occlusion or stenosis of unspecified carotid arteries Complete two-dimensional, color flow and Doppler transthoracic echocardiogram is performed. Strain analysis performed. Summary 1. Complete two-dimensional, color flow and Doppler transthoracic echocardiogram is performed. 2. Left ventricular chamber dimension is normal. 3. Left ventricular systolic function is normal, estimated at 60-65%. 4. There is moderately increased left ventricular wall thickness. 5. The left ventricular diastolic function is grade I diastolic dysfunction. 6. E/e' 25 is elevated. 7. Global longitudinal strain is abnormal at -16.1%. 8. Left atrial chamber dimension is mildly enlarged. 9. There is moderate aortic valve sclerosis. 10. There is mild aortic valve stenosis with a peak velocity of 218 cm/s, mean gradient of 11 mmHg, and aortic valve area of 1.8 cm2. 11. There is mild aortic valve regurgitation. 12. There is mild mitral valve regurgitation. 13. There is mild tricuspid valve regurgitation. 14. Mild pulmonary hypertension, estimated pulmonary arterial systolic pressure is 44 mmHg. Left Ventricle E/e' 25 is elevated. Global longitudinal strain is abnormal at -16.1%. Left ventricular chamber dimension is normal. Left ventricular systolic function is normal, estimated at 60-65%. There is moderately increased left ventricular wall thickness. The left ventricular diastolic function is grade I diastolic dysfunction. Right Ventricle Right ventricular systolic function is normal and with normal TAPSE 2.1 cm.. Right ventricular chamber dimension is normal. Left Atria Left atrial chamber dimension is mildly enlarged. Right Atria Right atrial chamber dimension is normal. Aortic Valve The aortic valve is trileaflet. There is moderate aortic valve sclerosis. There is mild aortic valve stenosis with a peak velocity of 218 cm/s, mean gradient of 11 mmHg, and aortic valve area of 1.8 cm2. There is mild aortic valve regurgitation. Pulmonic Valve There is no pulmonic regurgitation. Mitral Valve There is no mitral valve stenosis. There is mild mitral valve regurgitation. Tricuspid Valve There is mild tricuspid valve regurgitation. Mild pulmonary hypertension, estimated pulmonary arterial systolic pressure is 44 mmHg. Pericardium/Pleural There is no pericardial effusion. Inferior Vena Cava Normal inferior vena cava with >50% collapse upon inspiration consistent with normal right atrial pressure, 5 mmHg. Aorta The aortic root size at the sinus of Valsalva is normal. Left Ventricular Outflow Tract Name Value Normal LVOT 2D LVOT Diameter 2.0 cm LVOT Doppler ---
[2021-01-20 04:00] VITALS: PULSE 67
[2021-01-20 06:00] VITALS: BP 132/51; PULSE 78; RESP 18; TEMP 36.9; O2SAT 100
[2021-01-20 06:46] LABS: Basophils Absolute Auto 0.1 K/mm3 (0.0-0.1); Basophils Percent Auto 0.8 % (0.2-1.2); Eosinophils Absolute Auto 0.3 K/mm3 (0-0.3); Eosinophils Percent Auto 4.9 % (0-4.4); Hematocrit 35.2 % (37.0-47.0); Hemoglobin 11.2 g/dL (12.0-15.0); Immature Granulocyte Absolute 0.01 K/mm3 (0.00-0.031); Immature Granulocyte Percent A 0.2 % (0-0.5); Lymphocytes Absolute Auto 2.04 K/mm3 (0.9-3.2); Lymphocytes Percent Auto 34.2 % (18.3-44.2); Mean Corpuscular HGB Conc 31.8 g/dl (32-36); Mean Corpuscular Hemoglobin 28.6 pg (26-34); Mean Platelet Volume 12.7 fl (7.4-10.4); Monocytes Absolute Auto 0.5 K/mm3 (0.1-0.6); Monocytes Percent Auto 7.7 % (2.6-8.5); Neutrophils Absolute Auto 3.1 K/mm3 (1.3-6.7); Neutrophils Percent Auto 52.2 % (45.5-73.1); Platelet Count Result 208 k/mm3 (150-375); Red Blood Count 3.91 M/mm3 (4.2-5.4); Red Cell Distribution Width 13.7 % (11.5-14.5)
[2021-01-20 07:07] LABS: LDL Cholesterol Direct 118 mg/dL
[2021-01-20 07:25] LABS: Alanine Aminotransferase 11 U/L (4-35); Albumin Level 4.1 g/dL (3.5-5.1); Alkaline Phosphatase 69 U/L (38-126); Anion Gap 8 mmol/L (8-16); Aspartate Amino Transferase 18 U/L (14-36); Bilirubin,Total 0.4 mg/dL (0.2-1.3); Blood Urea Nitrogen 16 mg/dL (7-17); Calcium 9.1 mg/dL (8.4-10.2); Carbon Dioxide 24 mmol/L (22-30); Chloride 108 mmol/L (98-107); Estimated CRCL calculation 42 ml/min; Estimated Glomerular Filt Rate 49; Glucose 111 mg/dL (65-110); HDL Direct 42 mg/dL; Sodium 140 mmol/L (137-145); Triglycerides 377 mg/dL (<150)
[2021-01-20 08:00] VITALS: PULSE 76
[2021-01-20 08:38] LABS: Glucose Point of Care 141 mg/dl (65-105)
[2021-01-20] MEDS: GABAPENTIN 400 MG CAPSULE 800 MG PO ×3 (09:22→16:52)
[2021-01-20] MEDS: lisinopriL 2.5 MG TABLET PO (09:23)
[2021-01-20] MEDS: CLOPIDOGREL BISULFATE 75 MG TABLET PO (09:23)
[2021-01-20] MEDS: ASPIRIN 81 MG ENTERIC TABLET PO (09:23)
[2021-01-20] MEDS: FAMOTIDINE 20 MG/2 ML VIAL IV PUSH (09:23)
--- NOTE | 2021-01-20 09:24 | PCSTNOTE ---
Please refer to the Bedside Swallow Evaluation in the EMR. Please note, silent aspiration cannot be ruled out at bedside. A communication evaluation was also completed for speech and oral motor.
[2021-01-20 10:03] LABS: Cholesterol 330 mg/dL (0-200)
[2021-01-20 11:55] LABS: Glucose Point of Care 136 mg/dl (65-105)
[2021-01-20 14:00] VITALS: BP 143/57; PULSE 83; RESP 16; TEMP 37.2; O2SAT 100
--- NOTE | 2021-01-20 15:53 | P.DS_ITS ---
DS: Admitting Diagnosis Admitting Diagnosis acute CVA DS: Discharge Diagnosis Discharge Diagnosis (1) Acute CVA (cerebrovascular accident): Code(s): I63.9 - Cerebral infarction, unspecified Status: Acute Assessment and Plan: * Left-sided weakness present in the leg and arm * history of stroke * head CT shows prior infarction and age-related findings * carotid Dopplers show less than 50% stenosis bilateral * continue patient's home Plavix 75 mg p.o. daily and aspirin 81 mg p.o. daily * MRI ordered and pending * echocardiogram ordered * EKG shows sinus rhythm but could be some underlying rhythm changes * will check lipid panel * cardiology consult for possible Holter monitor * tele monitor * speech therapy for swallow eval * PT and OT * heart healthy low-fat diet (2) Diabetes mellitus: Code(s): E11.9 - Type 2 diabetes mellitus without complications Status: Acute Assessment and Plan: * glucose according the labs is 98 * hold patient's glipizide 2.5 mg p.o. daily * initiate sliding scale * Accu-Cheks AC and HS * hypoglycemic protocol * adjust medications as needed (3) TIA (transient ischemic attack): Code(s): G45.9 - Transient cerebral ischemic attack, unspecified Status: Acute Assessment and Plan: * see plan above (4) Headache: Code(s): R51 - Headache Status: Acute Assessment and Plan: * current 10/10 headache * photophobia * acetaminophen 1000 mg p.o. q.6 (5) Hypertension: Code(s): I10 - Essential (primary) hypertension Status: Acute Assessment and Plan: * blood pressure is 180/66 * continue patient's home lisinopril 2.5 mg p.o. daily * monitor blood pressure * blood pressure goal 160s to 180 systolically * adjust medications as needed (6) CAD (coronary artery disease): Code(s): I25.10 - Atherosclerotic heart disease of [place] coronary artery without angina pectoris Status: Acute Assessment and Plan: * past history of AR * aspirin 81 mg p.o. daily * echocardiogram ordered * lipid panel in the morning * start a statin drug DS: Summary Hospital Course Hospital Course: Patient is a 70-year-old female with a past medical history of [place], CVA, hypertension who presented to the ED with left-sided weakness. MRI came back with no new infarcts and unremarkable. Head CT also showed no acute intracranial process, carotid ultrasounds also showed less than 50% stenosis. echo Doppler showed an EF of 60-65% with grade 1 diastolic dysfunction. Patient did on tele monitor have some moments of frequent PVCs and multifocal PVCs. Concerned that the patient is flipping in and out of AFib. 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 all labs have remained stable this visit. Patient is also work with PT and OT this she of this visit and also speech therapy. Will try to get patient set up for home health and outpatient PT and OT and speech therapy. Patient will also need to follow-up with neurology in 4 weeks. And she will also need to ensure that she is taking an aspirin every day even though she said she is taking an aspirin every day. She also will need to follow-up with cardiology. Patient denies chest pain, shortness of breath, weakness, fatigue, sweats, fevers, chills. Patient does still have slurred speech which she is aware of and delayed speech however she is okay with that and is ready to go home
--- NOTE | 2021-01-20 15:53 | PM.DS ---
DS: Admitting Diagnosis Admitting Diagnosis acute CVA DS: Discharge Diagnosis Discharge Diagnosis (1) Acute CVA (cerebrovascular accident): Code(s): I63.9 - Cerebral infarction, unspecified Status: Acute Assessment and Plan: Left-sided weakness present in the leg and arm history of stroke head CT shows prior infarction and age-related findings carotid Dopplers show less than 50% stenosis bilateral continue patient's home Plavix 75 mg p.o. daily and aspirin 81 mg p.o. daily MRI ordered and pending echocardiogram ordered EKG shows sinus rhythm but could be some underlying rhythm changes will check lipid panel cardiology consult for possible Holter monitor tele monitor speech therapy for swallow eval PT and OT heart healthy low-fat diet (2) Diabetes mellitus: Code(s): E11.9 - Type 2 diabetes mellitus without complications Status: Acute Assessment and Plan: glucose according the labs is 98 hold patient's glipizide 2.5 mg p.o. daily initiate sliding scale Accu-Cheks AC and HS hypoglycemic protocol adjust medications as needed (3) TIA (transient ischemic attack): Code(s): G45.9 - Transient cerebral ischemic attack, unspecified Status: Acute Assessment and Plan: see plan above (4) Headache: Code(s): R51 - Headache Status: Acute Assessment and Plan: current / headache photophobia acetaminophen 1000 mg p.o. q.6 (5) Hypertension: Code(s): I10 - Essential (primary) hypertension Status: Acute Assessment and Plan: blood pressure is 180/66 continue patient's home lisinopril 2.5 mg p.o. daily monitor blood pressure blood pressure goal 160s to 180 systolically adjust medications as needed (6) CAD (coronary artery disease): Code(s): I25.10 - Atherosclerotic heart disease of [place] coronary artery without angina pectoris Status: Acute Assessment and Plan: past history of [place] aspirin 81 mg p.o. daily echocardiogram ordered lipid panel in the morning start a statin drug DS: Summary Hospital Course Hospital Course: Patient is a 70-year-old female with a past medical history of [place], CVA, hypertension who presented to the ED with left-sided weakness. MRI came back with no new infarcts and unremarkable. Head CT also showed no acute intracranial process, carotid ultrasounds also showed less than 50% stenosis. echo Doppler showed an EF of 60-65% with grade 1 diastolic dysfunction. Patient did on tele monitor have some moments of frequent PVCs and multifocal PVCs. Concerned that the patient is flipping in and out of AFib. Patient will need a 30 day cafeteria monitor which she will hand picker on Saturday. all labs have remained stable this visit. Patient is also work with PT and OT this she of this visit and also speech therapy. Will try to get patient set up for home health and outpatient PT and OT and speech therapy. Patient will also need to follow-up with neurology in 4 weeks. And she will also need to ensure that she is taking an aspirin every day even though she said she is taking an aspirin every day. She also will need to follow-up with cardiology. Patient denies chest pain, shortness of breath, weakness, fatigue, sweats, fevers, chills. Patient does still have slurred speech which she is aware of and delayed speech however she is okay with that and is ready to go home. Talked to her son about the discharge and the addition of the medications. He stated that his will be heading here to pick her up. Status at Discharge Functional status at discharge: uses cane/walker Overall status at discharge: patient is progressing back to baseline Time Spent with Patient Time attestation: Total time spent providing and/or coordinating discharge services: 48 minutes Time spent: Greater than 30 minutes Specific discharge
[2021-01-20] MEDS: ATORVASTATIN 40 MG TABLET PO (16:52)
== END 2021-01-20 17:15 | disposition home health service (06) | DRG 65 ==
LOC: ANHED 11:53 → ANH3MEDSUR 20:14
PROVIDERS: Emergency Medicine Emergency Medical Services; Admitting Provider Internal Medicine; Emergency Provider Emergency Medicine; PCP Family Medicine; Visit Provider Nurse Practitioner
DX: I63.9 Cerebral infarction, unspecified (principal); G81.94 Hemiplegia, unspecified affecting left nondominant side; R29.709 NIHSS score 9; R51.9 Headache, unspecified; R26.2 Difficulty in walking, not elsewhere classified; R47.81 Slurred speech; H53.149 Visual discomfort, unspecified; I49.3 Ventricular premature depolarization; E11.9 Type 2 diabetes mellitus without complications; I10 Essential (primary) hypertension; I25.10 Atherosclerotic heart disease of native coronary artery without angina pectoris; I25.2 Old myocardial infarction; Z95.5 Presence of coronary angioplasty implant and graft; Z90.710 Acquired absence of both cervix and uterus; Z79.82 Long term (current) use of aspirin; Z79.02 Long term (current) use of antithrombotics/antiplatelets
CPT/HCPCS: 36415; 70450; 70544; 71045; 80048; 80053; 80061; 81001; 82948; 83735; 84484; 85025; 85610; 85730; 87086; 92523; 92610; 93005; 93306; 93880; 97161; 97165; 99285; A9270

== ENCOUNTER 2021-06-18 08:27 | Emergency (ER) | payer MEDICARE, SELFPAY ==
--- NOTE | ~2021-06-18 | CT_ITS ---
EXAMINATION: CT brain wo con DATE: 06/18/2021 08:41 INDICATION: Cerebrovascular accident. Left facial weakness. TECHNIQUE: Computed tomography (CT) of the head was performed without intravenous contrast. The mA wa s adjusted according to patient size. Iterative reconstruction technique was employed. The dose-lengt h product was 605.33 mGy-cm. COMPARISON: Head CT 01/19/2021 FINDINGS: There are old infarcts in the cerebellum bilaterally. There are old infarcts in the frontop arietal regions bilaterally. There is an old infarct involving left insula and left temporal lobe. Th ere is no intracranial hemorrhage, acute infarction, or abnormal intracranial mass lesion. The ventri cles are normal in size. There is mild mucosal thickening in the paranasal sinuses. There are likely changes of ocular lens replacement surgeries. The mastoid air cells are normal. IMPRESSION: 1. Multiple old infarcts in the brain. I called this result to Dr. Reyes. Reviewed, dictated and finalized at location A. ACTOR OPERATOR
--- NOTE | ~2021-06-18 | XR_ITS ---
EXAMINATION: XR chest 1V portable DATE: 06/18/2021 08:53 INDICATION: Stroke. TECHNIQUE: A single frontal view of the chest was obtained. COMPARISON: Chest single view 01/20/2021, CT abdomen and pelvis 08/16/2017 FINDINGS: A calcified left lung nodule and calcified left hilar lymph nodes are consistent with old g ranulomatous disease. There are chronic reticular opacities at the lung bases. No pleural effusion or pneumothorax. The heart size is normal. There is a prominent left paracardial fat pad. IMPRESSION: 1. Mild chronic interstitial lung disease. Reviewed, dictated and finalized at location A. PREVENTION OPERATIONS MANAGER
--- NOTE | 2021-06-18 08:31 | ECG_ITS ---
Measurements Intervals [place] Rate: 97 P: 61 HI: 168 QRS: 54 QRSD: 82 T: 40 QT: 314 QTc: 399 Interpretive Statements SINUS RHYTHM NORMAL ECG Electronically Signed On 06-18-2021 17:18:47 CERTIFIED HEARING INSTRUMENT DISPENSER by Rigoberto Vera D.O.
[2021-06-18 08:34] LABS: Glucose Point of Care 159 mg/dl (65-105)
[2021-06-18 08:44] VITALS: BP 179/68; PULSE 101; RESP 16; TEMP 36.6; O2SAT 97
--- NOTE | 2021-06-18 08:44 | ED.NEUROSD ---
HPI - Neuro Symptoms/Deficit General Chief Complaint: Suspected CVA Stated Complaint: stroke symptoms Time Seen by Provider: 06/18/21 08:44 Source: family Limitations: physical limitation History of Present Illness HPI Narrative: Patient brought to the ED by her daughter was telling me that patient was acting normal as usual and at 8 AM while vacuuming the floor developed generalized diaphoresis, glazed look, couldn't talk, mumbling, left-sided head pain and left jaw pain. The daughter was able to support her mom slowly, was very unsteady and brought her to the ED by private car, [address], on arrival to the triage patient wasn't able to move even one finger, generalized weakness. Patient is fully vaccinated for COVID-19, patient on aspirin and Plavix Related Data Home Medications Medication Instructions Recorded Confirmed albuterol sulfate [ProAir HFA] 2 puff INHALATION QID PRN 02/02/20 01/19/21 aspirin [Aspirin Low Dose] 81 mg DAILY 02/02/20 01/20/21 clopidogrel 75 mg DAILY 02/02/20 01/20/21 ergocalciferol (vitamin D2) 50,000 unit PO WEEKLY 02/02/20 01/19/21 gabapentin 800 mg QID 02/02/20 01/19/21 glipizide 2.5 mg PO DAILY 02/02/20 01/19/21 lisinopril 2.5 mg PO DAILY 02/02/20 01/19/21 metformin 1,000 mg PO BID 01/20/21 01/20/21 Allergies Allergy/AdvReac Type Severity Reaction Status Date / Time Penicillins Allergy Severe Anaphylaxis Verified 02/02/20 07:21 acetaminophen [From Tylenol] Allergy Swelling Verified 01/19/21 17:47 of Lip/Tongue/Throat iodine Allergy Rash Verified 02/02/20 07:22 Sulfa (Sulfonamide Allergy Rash Verified 02/02/20 07:21 Antibiotics) Review of Systems Review of Systems: ROS unobtainable: Yes unobtainable due to medical condition PMFSH Past Medical History Medical History CVA (cerebral vascular accident) Diabetes mellitus Headache Hypertension Myocardial infarction Surgical History Surgical History H/O heart artery stent History of hysterectomy Family History Family History Mother Cerebrovascular accident Father Unknown family medical history Social History Social History Smoking status: Never smoker Alcohol intake: never Substance use: never Substance use type: does not use Gender identity (if verbalized by the patient): Female Spiritual care concerns: No Exam Narrative: General appearance: Well-developed, well-nourished Skin: Normal color Head: Normocephalic, nontraumatic Eyes: Clear conjunctiva ENT: Oropharynx normal, ears normal, nose normal Neck: Supple, nontender Chest and respiratory: Airway patent, no respiratory distress, no accessory muscle use Heart: Regular rate/rhythm Abdomen: Soft, nontender, no organomegaly, quiet bowel sounds Vascular: Normal peripheral pulses, normal capillary refill. Musculoskeletal: Weakness all over the 4 extremities mainly on the left side, some positive muscular tone on the right upper and right lower extremity but still weak. Patient doesn't follow commands, mumbling, Neurologic: Alert Course Course Emergency Course: Stable Consultations Consultation #1: DR ASHER, neurologist at [facility] who accepted patient transfer to the ED Date: 06/18/21 Time: 09:20 Consultation #2: DR FU, the emergency room physician at [facility] who accepted patient transfer Date: 06/18/21 Time: 09:20 Vital Signs Vital signs: Vital Signs Temperature 36.6 C 06/18/21 08:44 Pulse Rate 101 H 06/18/21 08:44 Respir
[2021-06-18 09:10] LABS: Basophils Absolute Auto 0.1 K/mm3 (0.0-0.1); Basophils Percent Auto 0.9 % (0.2-1.2); Eosinophils Absolute Auto 0.3 K/mm3 (0-0.3); Eosinophils Percent Auto 4.4 % (0-4.4); Hematocrit 37.7 % (37.0-47.0); Hemoglobin 11.9 g/dL (12.0-15.0); Immature Granulocyte Absolute 0.01 K/mm3 (0.00-0.031); Immature Granulocyte Percent A 0.1 % (0-0.5); Lymphocytes Absolute Auto 3.04 K/mm3 (0.9-3.2); Lymphocytes Percent Auto 39.5 % (18.3-44.2); Mean Corpuscular HGB Conc 31.6 g/dl (32-36); Mean Corpuscular Hemoglobin 28.5 pg (26-34); Mean Corpuscular Volume 90.4 fl (80-100); Monocytes Absolute Auto 0.5 K/mm3 (0.1-0.6); Neutrophils Absolute Auto 3.7 K/mm3 (1.3-6.7); Neutrophils Percent Auto 48.1 % (45.5-73.1); Platelet Count Result 216 k/mm3 (150-375); Red Blood Count 4.17 M/mm3 (4.2-5.4); Red Cell Distribution Width 13.8 % (11.5-14.5); White Blood Count 7.7 K/mm3 (4.5-10.0)
--- NOTE | 2021-06-18 09:18 | PC.NURSE ---
V#[id number] transferred to [facility] per AIRE[facility] [id number] - AIR E Vac accepted transfer to [facility] - ER ETA 8min 09 - OB Security notified of AIR E Vac landing in 8min Security stated They would see what they can do 905- OB Security notified again AIR E Vac landing in approx. 2 - 3 min 908- Air E Vac landed - no security on helipad
[2021-06-18 09:20] VITALS: BP 179/63; PULSE 87; RESP 16; O2SAT 97
[2021-06-18 09:22] LABS: Alanine Aminotransferase 14 U/L (4-35); Albumin Level 4.7 g/dL (3.5-5.1); Alkaline Phosphatase 85 U/L (38-126); Anion Gap 14 mmol/L (8-16); Aspartate Amino Transferase 21 U/L (14-36); Bilirubin,Total 0.4 mg/dL (0.2-1.3); Blood Urea Nitrogen 26 mg/dL (7-17); Calcium 9.5 mg/dL (8.4-10.2); Carbon Dioxide 23 mmol/L (22-30); Chloride 102 mmol/L (98-107); Estimated CRCL calculation 25 ml/min; Estimated Glomerular Filt Rate 32; Glucose 150 mg/dL (65-110); Potassium 4.8 mmol/L (3.4-5.0); Sodium 139 mmol/L (137-145)
--- NOTE | 2021-06-18 09:23 | PC.NURSE ---
pt sent to [facility] with TPA infusing
[2021-06-18 09:25] LABS: INR 0.9; Partial Thromboplastin Time 33.4 SECONDS (22.3-36.8); Prothrombin Time 11.6 Seconds (11.1-14.7)
[2021-06-18 09:33] LABS: Troponin I < 0.012 ng/mL (0.000-0.034)
== END 2021-06-18 09:23 | disposition short-term general hospital (02) ==
PROVIDERS: Emergency Provider Emergency Medicine; PCP Family Medicine
DX: I63.9 Cerebral infarction, unspecified (principal); R29.717 NIHSS score 17; E11.9 Type 2 diabetes mellitus without complications; I10 Essential (primary) hypertension; I25.2 Old myocardial infarction; Z95.5 Presence of coronary angioplasty implant and graft; Z79.84 Long term (current) use of oral hypoglycemic drugs; Z79.82 Long term (current) use of aspirin; J84.9 Interstitial pulmonary disease, unspecified
CPT/HCPCS: 36415; 37195; 70450; 71045; 80053; 82948; 84484; 85025; 85610; 85730; 93005; 99285; J2997

== ENCOUNTER 2021-07-02 13:50 | Emergency (ER) | payer MEDICARE, SELFPAY ==
[2021-07-02] VITALS (7 sets, daily range): BP systolic 75–218; BP diastolic 49–169; PULSE 70–112; RESP 12–23; TEMP 39.4–39.5; O2SAT 90–97
--- NOTE | ~2021-07-02 | XR_ITS ---
EXAMINATION: XR chest 1V portable DATE: 07/02/2021 14:43 INDICATION: Transient alteration of awareness. TECHNIQUE: A single frontal view of the chest was obtained. COMPARISON: Chest single view 06/18/2021 FINDINGS: A calcified left lung nodule and calcified left hilar lymph nodes are consistent with old g ranulomatous disease. There are chronic reticular opacities at the lung bases. No pleural effusion or pneumothorax. The heart size is normal. IMPRESSION: 1. Mild chronic interstitial lung disease. Reviewed, dictated and finalized at location A. OR ADMINISTRATIVE ASSISTANT
--- NOTE | ~2021-07-02 | CT_ITS ---
EXAMINATION: CT abdomen pelvis wo con DATE: 07/02/2021 16:43 INDICATION: Sepsis. TECHNIQUE: Computed tomography (CT) of the abdomen and pelvis was performed without intravenous contr ast. Automated exposure control and iterative reconstruction technique were employed. The dose-length product was 739.29 mGy-cm. COMPARISON: CT abdomen and pelvis 08/16/2017 FINDINGS: The visualized portions of the lung bases demonstrate hyperdense reticular opacities in the lower lobes, consistent with chronic interstitial lung disease. No pleural effusion. The heart size is normal. There are coronary artery calcifications. There are calcifications of aortic valve. No per icardial effusion. The liver, gallbladder, spleen, pancreas, adrenal glands, and kidneys are normal. There is no urolithiasis. Pelvic floor relaxation is noted. There is a Duong catheter in the bladder. There are no dilated loops of bowel. The appendix is normal. There are no pathologically enlarged ly mph nodes. There is no free intraperitoneal fluid. There is mild thoracolumbar spondylosis. IMPRESSION: 1. Mild chronic interstitial lung disease. Reviewed, dictated and finalized at location A. INSTRUCTOR
--- NOTE | ~2021-07-02 | CT_ITS ---
EXAMINATION: CT brain wo con DATE: 07/02/2021 16:33 INDICATION: Altered mental status. TECHNIQUE: Computed tomography (CT) of the head was performed without intravenous contrast. The mA wa s adjusted according to patient size. Iterative reconstruction technique was employed. The dose-lengt h product was 605.33 mGy-cm. COMPARISON: Head CT 06/18/2021 FINDINGS: There are old infarcts in the cerebellum bilaterally. There is an old infarct in right fron toparietal region. There is an old infarct in left frontoparietal region. There is an infarct in left parietal lobe, new from 06/18/21. There is acute subarachnoid hemorrhage in sulci in left frontopari etal region. There is an acute intraparenchymal hematoma in left frontoparietal region. There is an a cute intraparenchymal hematoma in left temporal lobe. There is low-attenuation vasogenic edema around the hematomas. There is a hypodense left parietal subdural hematoma with maximum thickness of 5 mm. There is no abnormal mass lesion. There is mass effect on left lateral ventricle. No midline shift. T here are likely changes of ocular lens replacement surgeries. There is mucosal thickening in the para nasal sinuses. The mastoid air cells are normal. IMPRESSION: 1. Acute intraparenchymal hematomas in left temporal lobe and left frontoparietal region. 2. Acute subarachnoid hemorrhage in left frontoparietal region. 3. Acute versus subacute infarct in left parietal lobe. 4. Left parietal subdural hematoma, likely subacute. 5. Multiple old infarcts in the brain. Reviewed, dictated and finalized at location A. OW GLAZIER IMPRESSION: 1. Acute intraparenchymal hematomas in left temporal lobe and left frontopariet al region. 2. Acute subarachnoid hemorrhage in left frontoparietal region. 3. Acute versus subacute infarct in left parietal lobe. 4. Left parietal subdural hematoma, likely subacute. 5. Multiple old infarcts in the brain.
--- NOTE | ~2021-07-02 | XR_ITS ---
EXAMINATION: XR chest ET placement DATE: 07/02/2021 17:40 INDICATION: Intubation. TECHNIQUE: A single frontal view of the chest was obtained. COMPARISON: Chest single view at 2:26 PM FINDINGS: There are chronic interstitial opacities in the lower lung zones. A calcified left lung nod ule and calcified left hilar lymph nodes are consistent with old granulomatous disease. No pleural ef fusion or pneumothorax. The heart size is normal. The endotracheal tube tip is 2.7 cm above the chin a. IMPRESSION: 1. Mild chronic interstitial lung disease. Reviewed, dictated and finalized at location A. HER LOADER OPERATOR
--- NOTE | 2021-07-02 14:11 | ECG_ITS ---
Measurements Intervals Omar Rate: 94 P: 70 KS: 135 QRS: -12 QRSD: 81 T: 38 QT: 312 QTc: 390 Interpretive Statements SINUS RHYTHM EARLY PRECORDIAL R/S TRANSITION LOW QRS VOLTAGE IN PRECORDIAL LEADS BASELINE ARTIFACT- I, II, III, AVR, AVL, AVF, V1-V6 BORDERLINE ECG Electronically Signed On 07-03-2021 7:13:44 DEPUTY DIRECTOR by Rigoberto Vera D.O.
--- NOTE | 2021-07-02 14:27 | ED.GENADULT ---
HPI - General Adult General Chief complaint: Altered Mental Status Stated complaint: Altered - temperature Time Seen by Provider: 07/02/21 13:57 Source: EMS and RN notes reviewed History of Present Illness HPI narrative: Patient is a 70 y/o female sent from [place] for altered mental status. Patient is unresponsive and unable to provide any additional history. It's unknown when this started or what her baseline status is like. She is reported to have fever of 104. Daughter states that patient was talking yesterday when her brother was there to visit. Of note, patient recently had a stroke and was given tPA and transferred to [facility] on 06/18/21. Related Data Home Medications Medication Instructions Recorded Confirmed albuterol sulfate [ProAir HFA] 2 puff INHALATION QID PRN 02/02/20 01/19/21 aspirin [Aspirin Low Dose] 81 mg DAILY 02/02/20 01/20/21 clopidogrel 75 mg DAILY 02/02/20 01/20/21 ergocalciferol (vitamin D2) 50,000 unit PO WEEKLY 02/02/20 01/19/21 gabapentin 800 mg QID 02/02/20 01/19/21 glipizide 2.5 mg PO DAILY 02/02/20 01/19/21 lisinopril 2.5 mg PO DAILY 02/02/20 01/19/21 metformin 1,000 mg PO BID 01/20/21 01/20/21 Allergies Allergy/AdvReac Type Severity Reaction Status Date / Time Penicillins Allergy Severe Anaphylaxis Verified 07/02/21 15:40 acetaminophen [From Tylenol] Allergy Swelling Verified 07/02/21 15:40 of Lip/Tongue/Throat iodine Allergy Rash Verified 07/02/21 15:40 Sulfa (Sulfonamide Allergy Rash Verified 07/02/21 15:40 Antibiotics) Review of Systems Review of Systems: ROS unobtainable: Yes unobtainable due to mental status PMFSH Past Medical History Medical History CVA (cerebral vascular accident) Diabetes mellitus Headache Hypertension Myocardial infarction Surgical History Surgical History H/O heart artery stent History of hysterectomy Family History Family History Mother Cerebrovascular accident Father Unknown family medical history Social History Social History Smoking status: Never smoker Alcohol intake: never Substance use: never Substance use type: does not use Gender identity (if verbalized by the patient): Female Spiritual care concerns: No Exam Const: General: no acute distress and ill appearing Orientation/consciousness: patient obtunded HENMT: Head: normocephalic Ears: external ears normal General nose exam: Normal external nose present Eyes: General: appearance normal, both eyes and all related structures Conjunctivae: conjunctivae normal Neck: Neck: normal visual inspection and full ROM Chest: Chest palpation & inspection: normal inspection of the chest and no tenderness Resp: Effort & Inspection: normal respiratory effort Auscultation: clear to auscultation bilaterally Cardio: Rate: regular rate Rhythm: regular rhythm GI: GI Palp: No abdominal tenderness and Yes Soft to palpation Skin: General skin exam: normal color and turgor normal Neuro: General: patient obtunded and other (no response to painful stimuli) Extrem: General: normal to inspection, full ROM and no pedal edema Course Consultations Consultation #1: Discussed with Dr. Orourke (neurology) at [facility], who agrees to transfer patient to [facility] ED. Date: 07/02/21 Time: 17:05 Consultation #2: Discussed with Dr. Garcias (EDP) at [facility], who agrees to transfer. Date: 07/02/21 Time: 17:10 Vital Signs Vital signs: Vital Signs Pulse Rate 74 07/02/21 13:53 Respiratory Rate 12 07/02/21 13:53 Blood Pressure 117/64 07/02/21 13:53 Pulse Oximetry 90 07/02/21 13:53 Temperature 39.4 C H 07/02/21 17:02 Pulse Rate 92 07/02/21 17:19 Respiratory Rate 21 H 07/02/21 17:19 Blood Pressure 100/49 L 07/02/21 17:19 Pulse Oximetry 96 07/02/21 17:19 Procedure
[2021-07-02 14:47] LABS: Basophils Absolute Auto 0.1 K/mm3 (0.0-0.1); Basophils Percent Auto 0.2 % (0.2-1.2); Hematocrit 27.5 % (37.0-47.0); Hemoglobin 8.8 g/dL (12.0-15.0); Lymphocytes Absolute Auto 0.84 K/mm3 (0.9-3.2); Mean Corpuscular Hemoglobin 28.2 pg (26-34); Mean Corpuscular Volume 88.1 fl (80-100); Mean Platelet Volume 11.8 fl (7.4-10.4); Monocytes Absolute Auto 0.5 K/mm3 (0.1-0.6); Monocytes Percent Auto 2.4 % (2.6-8.5); Neutrophils Absolute Auto 19.4 K/mm3 (1.3-6.7); Neutrophils Percent Auto 92.4 % (45.5-73.1); Platelet Count Result 167 k/mm3 (150-375); Red Blood Count 3.12 M/mm3 (4.2-5.4); Red Cell Distribution Width 14.3 % (11.5-14.5); White Blood Count 20.9 K/mm3 (4.5-10.0)
[2021-07-02 14:55] LABS: INR 1.3; Prothrombin Time 16.4 Seconds (11.1-14.7)
[2021-07-02 14:56] LABS: Partial Thromboplastin Time 40.6 SECONDS (22.3-36.8)
[2021-07-02 14:57] LABS: Alanine Aminotransferase 54 U/L (4-35); Albumin Level 3.3 g/dL (3.5-5.1); Alkaline Phosphatase 105 U/L (38-126); Anion Gap 14 mmol/L (8-16); Aspartate Amino Transferase 96 U/L (14-36); Bilirubin,Total 1.3 mg/dL (0.2-1.3); Blood Urea Nitrogen 43 mg/dL (7-17); Calcium 7.9 mg/dL (8.4-10.2); Carbon Dioxide 21 mmol/L (22-30); Chloride 103 mmol/L (98-107); Estimated CRCL calculation 21 ml/min; Estimated Glomerular Filt Rate 26; Glucose 132 mg/dL (65-110); Potassium 3.4 mmol/L (3.4-5.0); Sodium 138 mmol/L (137-145)
[2021-07-02 14:58] LABS: Lactic Acid Reflex 1.6 mmol/L (0.7-2.1)
[2021-07-02 15:25] LABS: Platelet Estimate Adequate (Adequate)
[2021-07-02 15:26] LABS: Burr Cells 2+ (NORMAL); Smudge Cells FEW
[2021-07-02 15:27] LABS: Poikilocytosis 1+ (NORMAL)
[2021-07-02 15:35] LABS: Add Urine Microscopic? YES; Appearance Urine Cloudy (Clear); Bacteria Urine 4+ /hpf; Bilirubin Urine Negative (Negative); Blood Urine 2+ (Negative); Color Urine Yellow (Yellow); Glucose Urine UA Negative (Negative); Ketones Urine Trace mg/dL (Negative); Leukocyte Esterase Ur 2+ LEU/UL (Negative); Mucus Urine Heavy /lpf; Nitrate Urine Negative (Negative); Protein Urine 1+ mg/dL (Negative); Specific Grav Ur 1.014 (1.001-1.035); Urobilinogen Urine Negative mg/dL (<2.0); WBC Urine >75 /hpf
[2021-07-02] MEDS: SODIUM CHLORIDE 0.9% IV 1,000 ML 999 ML IV CONT ×2 (15:37→17:16)
[2021-07-02 15:44] LABS: Glucose Point of Care 127 mg/dl (65-105)
[2021-07-02 16:06] LABS: EDCOVIDSCREEN Negative (Negative)
[2021-07-02] MEDS: levoFLOXacin 500 MG/D5W 100 ML 500 MG/100 ML BAG 100 MG IVPB (16:46)
[2021-07-02] MEDS: LABETALOL HCL INJ 100 MG/20 ML VIAL 20 MG IV PUSH (16:51)
--- NOTE | 2021-07-02 16:54 | PC.NURSE ---
Ice packs placed in axilla and groin per EDP direction for pt fever.
[2021-07-02 17:05] LABS: Alveolar/Arterial O2 Gradient 47.1 mmHg; Base Excess ABG -4.9 mEq/l (+/-2.0); Fractional Inspired Oxygen 21 %; HCO3 ABG 17.4 mEq/l (22.0-26.0); Methemoglobin ABG 0.2 %THb (0-1.5); Oxygen Content ABG 11.7 %vol (16.0-22.0); Oxygen Saturation ABG 96.2 % (95.0-100.0); Oxyhemoglobin 93.6 % THb (90.0-100.0); PO2 ABG 74.4 mmHg (80.0-100.0); PO2 FiO2 Ratio Arterial Blood 3.54 %; Reduced Hemoglobin 6.2 %THb (0-5.0); Total Hemoglobin 8.8 g/dL (12.0-18.0); pH ABG 7.486 (7.350-7.450)
[2021-07-02 17:07] LABS: Device ROOM AIR; Modified Allen's Test Pass; PCO2 ABG 23.6 mmHg (35.0-45.0); Site Drawn LEFT RADIAL
--- NOTE | 2021-07-02 17:28 | PC.NURSE ---
Pt emergently intubated for airway protection prior to transfer. 4mg versed given and 100mg succinylcholine given at 1727. Pt intubated with 7.5mm tube 25cm to the lip. Good color change by CO2 detector and lungs sound auscultated bilaterally.
[2021-07-02] MEDS: levETIRAcetam 1000MG/NACL100ML 1,000 MG/100 ML BAG 999 MG (17:34)
[2021-07-02] MEDS: HUMAN PROTHROMBIN COMPLEX(PCC) 3,500 UNITS in PREMIXIV 0 ML 500 UNITS IV CONT (17:34)
--- NOTE | 2021-07-02 17:55 | PC.NURSE ---
Additional 4mg versed given post intubation per Dr. Noriega verbal order. Flight team arrived and report given to them. Pt loaded and taken transported to [facility]
== END 2021-07-02 17:56 | disposition short-term general hospital (02) ==
PROVIDERS: Emergency Provider Emergency Medicine; PCP Family Medicine
DX: I62.9 Nontraumatic intracranial hemorrhage, unspecified (principal); I60.9 Nontraumatic subarachnoid hemorrhage, unspecified; A41.9 Sepsis, unspecified organism; N39.0 Urinary tract infection, site not specified; N18.9 Chronic kidney disease, unspecified; I95.9 Hypotension, unspecified; Z20.822 Contact with and (suspected) exposure to COVID-19; E11.22 Type 2 diabetes mellitus with diabetic chronic kidney disease; I12.9 Hypertensive chronic kidney disease with stage 1 through stage 4 chronic kidney disease, or unspecified chronic kidney disease; I25.2 Old myocardial infarction; Z86.73 Personal history of transient ischemic attack (TIA), and cerebral infarction without residual deficits; Z95.5 Presence of coronary angioplasty implant and graft; Z79.82 Long term (current) use of aspirin; Z79.84 Long term (current) use of oral hypoglycemic drugs; R94.31 Abnormal electrocardiogram [ECG] [EKG]; J84.9 Interstitial pulmonary disease, unspecified
CPT/HCPCS: 31500; 36415; 36600; 70450; 71045; 74176; 80053; 81001; 82375; 82805; 82948; 83050; 83605; 85025; 85610; 85730; 87040; 87077; 87086; 87186; 87426; 93005; 96361; 96365; 96367; 96368; 96375; 99291; C9803; J0330; J1953; J1956; J2250; J7030; J7168